=== PATIENT | female | born 1985 | race American Indian/Alaskan Native ===

== ENCOUNTER 2020-11-26 09:22 | Outpatient (CLI) | payer MEDICAID, OTHER | END 2020-11-26 09:23 | disposition home or self-care (01) | LOC: LABHHL 09:22 | PROVIDERS: ATTEND Surgery | DX: N63.20 Unspecified lump in the left breast, unspecified quadrant (principal) | CPT/HCPCS: 88305; 88341; 88342 ==

== ENCOUNTER 2020-12-02 14:18 | Outpatient (CLI) | payer MEDICAID, OTHER ==
--- NOTE | 2020-12-02 16:29 | Mammography Report ---
DIGITAL DIAGNOSTIC MAMMOGRAM WITH CAD , 12/02/2020 CLINICAL INFORMATION / INDICATION: Postprocedure mammogram following left breast biopsy. ABNORMAL AND INCONCLUSIVE FINDINGS ON DIAG IMAGING OF BREAST TECHNIQUE: Digital left mammographic imaging was performed. This examination was interpreted with the benefit of Computer-aided Detection analysis. COMPARISON: Prior mammogram 10/20/2020 FINDINGS: Breast Density: There are scattered areas of fibroglandular density. There are pleomorphic calcifications occupying the entire lower inner quadrant of the left breast. Th ere is a biopsy clip along the mid to posterior aspect of the calcifications. The entire area of elaine gnant appearing involvement spans a distance of 12 x 11 x 9 cm. Mammographically the most anterior ca lcification is 1.2 cm from the nipple. IMPRESSION: Highly suggestive of malignancy. There are segmental malignant appearing calcifications o ccupying the entire lower inner quadrant of the left breast. Follow up recommendation: Surgical consultation BI-RADS Category 5: Highly Suggestive of Malignancy. A "normal" or negative report should not discourage follow up or biopsy of a clinically significant f inding. A written summary of these findings will be mailed to the patient. The patient will be entered into a mammography reporting system which will generate a reminder letter for the patient's next appointmen t at the appropriate interval. According to the [employer], yearly mammograms are recommended starting at age 40 and continuing as long as a woman is in good health. Breast MRI is recommended for women with an dennis roximately 20-25% or greater lifetime risk of breast cancer, including women with a strong family his tory of breast or ovarian cancer and women who have been treated for Hodgkin's disease. Signer Name: Naomy Vaughn MD Signed: 12/02/2020 4:25 PM Workstation Name: [id number]
== END 2020-12-02 14:19 | disposition home or self-care (01) ==
LOC: SPVWC 14:18
PROVIDERS: ATTEND Surgery
DX: R92.1 Mammographic calcification found on diagnostic imaging of breast (principal)